=== PATIENT | female | born 1955 | race Caucasian/White ===

== ENCOUNTER 2022-03-13 07:16 | Day surgery (SDC) | payer OTHER ==
[~2022-03-13 07:16] MED LIST: Lactated Ringers 1,000 ML IV SCH
[2022-03-13] MEDS ORDERED: fentaNYL 100 MCG/2 ML SDV ONE ×2 (08:09→09:05)
[2022-03-13] MEDS ORDERED: Propofol 200 MG/20 ML SDV ONE ×3 (08:09→09:41)
== END 2022-03-13 11:30 | disposition home or self-care (01) ==
LOC: VM.SDS 07:16
PROVIDERS: ATTEND Family Medicine
DX: Z12.11 Encounter for screening for malignant neoplasm of colon (principal); D12.2 Benign neoplasm of ascending colon; D12.3 Benign neoplasm of transverse colon; J44.9 Chronic obstructive pulmonary disease, unspecified; K21.9 Gastro-esophageal reflux disease without esophagitis; G47.00 Insomnia, unspecified; E78.00 Pure hypercholesterolemia, unspecified; F17.210 Nicotine dependence, cigarettes, uncomplicated; G62.9 Polyneuropathy, unspecified; E03.8 Other specified hypothyroidism; Z98.890 Other specified postprocedural states; Z79.899 Other long term (current) drug therapy; Z79.890 Hormone replacement therapy
CPT/HCPCS: 00812; J2704; J3010; J7120

== ENCOUNTER 2022-10-09 07:23 | Day surgery (SDC) | payer MEDICARE, BC ==
[2022-10-09] MEDS: Lactated Ringers 1,000 ML IV SCH ×2 (07:39→11:29)
[2022-10-09] MEDS ORDERED: fentaNYL 100 MCG/2 ML SDV ONE (08:22)
[2022-10-09] MEDS ORDERED: Propofol 200 MG/20 ML SDV ONE (08:22)
[2022-10-09] MEDS ORDERED: Ondansetron 8 MG in Sodium Chloride 0.9% 100 ML IV PRN (11:04)
[2022-10-09] MEDS ORDERED: Ondansetron 4 MG/2 ML SDV IV PRN (11:20)
== END 2022-10-09 13:15 | disposition home or self-care (01) ==
LOC: VM.SDS 07:23
PROVIDERS: ATTEND Family Medicine
DX: D13.0 Benign neoplasm of esophagus (principal); K20.90 Esophagitis, unspecified without bleeding; K29.70 Gastritis, unspecified, without bleeding; K21.9 Gastro-esophageal reflux disease without esophagitis; E03.9 Hypothyroidism, unspecified; E78.00 Pure hypercholesterolemia, unspecified; G47.00 Insomnia, unspecified; J44.9 Chronic obstructive pulmonary disease, unspecified; R73.9 Hyperglycemia, unspecified; G62.9 Polyneuropathy, unspecified; E04.1 Nontoxic single thyroid nodule; F17.210 Nicotine dependence, cigarettes, uncomplicated; Z98.890 Other specified postprocedural states; Z79.899 Other long term (current) drug therapy; Z79.890 Hormone replacement therapy; Z68.33 Body mass index [BMI] 33.0-33.9, adult
CPT/HCPCS: 00731; 88305; J1790; J2405; J2704; J3010; J7120

== ENCOUNTER 2022-10-21 16:51 | Observation (INO) | payer MEDICARE, BC ==
[2022-10-21] MEDS ORDERED: Ondansetron 4 MG/2 ML SDV IV PRN (17:09)
[2022-10-21] MEDS ORDERED: Ondansetron 4 MG/2 ML SDV IVPUSH PRN (17:12)
[2022-10-21] MEDS ORDERED: Albuterol HFA 18 Gm Inhaler INH PRN (17:13)
[2022-10-21] MEDS ORDERED: LORazepam 0.5 MG Tab PO PRN (17:13)
[2022-10-21] MEDS ORDERED: cefTRIAXone 1 GM Vial IVPUSH ONE (17:13)
[2022-10-21] MEDS ORDERED: Sodium Chloride 0.9% 1,000 ML IV SCH (17:15)
[2022-10-21] MEDS ORDERED: Potassium Chloride Riders 10 MEQ in Premix Bag 1 BAG IV ONE (17:59)
[2022-10-21] MEDS: Heparin Sodium 5,000 Units/ML Vial SUBCUT SCH (18:45)
[2022-10-21 19:43] LABS: CORONAVIRUS COVID-19 NAA NEGATIVE (NEGATIVE)
[2022-10-21] MEDS: Nicotine 21 MG/24 Hr Patch TRDERM SCH (20:03)
[2022-10-21] MEDS: Acetaminophen 325 MG Tab PO PRN (20:12)
[2022-10-21] MEDS: Omeprazole 20 MG Cap.CR PO SCH (20:13)
[2022-10-21] MEDS: Zolpidem 5 MG Tab PO SCH (20:13)
[2022-10-21] MEDS: NS + KCl 20mEq/L 1,000 ML IV SCH (20:45)
[2022-10-22] MEDS: Heparin Sodium 5,000 Units/ML Vial SUBCUT SCH ×3 (01:14→17:53)
[2022-10-22] MEDS: NS + KCl 20mEq/L 1,000 ML IV SCH ×3 (03:26→16:33)
[2022-10-22] MEDS: Levothyroxine 125 MCG Tab PO SCH (06:33)
[2022-10-22 06:58] LABS: CHLORIDE,CL 105 mmol/L (98-107); SODIUM,NA 141 mmol/L (136-145)
[2022-10-22 07:00] LABS: ESTIMATED GFR 82 mL/min (>=60)
[2022-10-22] MEDS ORDERED: Potassium Chloride 20 MEQ Tab.ER PO ONE (07:38)
[2022-10-22] MEDS ORDERED: Iopamidol 612 MG/ML 100 ML Bottle IVPUSH ONE (07:54)
[2022-10-22] MEDS ORDERED: Non-Formulary Medication 1 Each (Fluticasone/Vilanterol 1 EACH Each) PO SCH (09:00)
[2022-10-22] MEDS ORDERED: Levothyroxine 125 MCG Tab PO SCH (09:00)
[2022-10-22] MEDS: Pregabalin 25 MG Cap PO SCH ×2 (09:33→20:37)
[2022-10-22] MEDS: Potassium Chloride 10 MEQ Tab.ER PO SCH ×2 (09:33→17:52)
[2022-10-22] MEDS: Sertraline 25 MG Tab PO SCH (09:34)
[2022-10-22] MEDS: Omeprazole 20 MG Cap.CR PO SCH ×2 (09:34→20:37)
[2022-10-22] MEDS: Magnesium Oxide 400 MG Tab PO SCH (09:40)
[2022-10-22] MEDS: Nicotine 21 MG/24 Hr Patch TRDERM SCH (09:57)
[2022-10-22] MEDS: Acetaminophen 325 MG Tab PO PRN ×2 (09:57→18:22)
[2022-10-22] MEDS: cefTRIAXone 1 GM Vial IVPUSH SCH (10:00)
[2022-10-22] MEDS: Sucralfate 1 GM Tab PO SCH ×3 (11:22→20:37)
[2022-10-22] MEDS ORDERED: NS + KCl 20mEq/L 1,000 ML IV SCH (19:15)
[2022-10-22] MEDS: Zolpidem 5 MG Tab PO SCH (20:36)
[2022-10-23] MEDS: Heparin Sodium 5,000 Units/ML Vial SUBCUT SCH ×3 (01:08→17:58)
[2022-10-23] MEDS: Levothyroxine 125 MCG Tab PO SCH (06:11)
[2022-10-23] MEDS: Sucralfate 1 GM Tab PO SCH ×4 (06:11→21:13)
[2022-10-23] MEDS: Acetaminophen 325 MG Tab PO PRN ×2 (06:31→13:37)
[2022-10-23 06:50] LABS: ANION GAP 9.6 mmol/L (5-15)
[2022-10-23] MEDS: Magnesium Oxide 400 MG Tab PO SCH ×3 (08:08→21:16)
[2022-10-23] MEDS: Omeprazole 20 MG Cap.CR PO SCH ×2 (08:08→21:13)
[2022-10-23] MEDS: Potassium Chloride 10 MEQ Tab.ER PO SCH (08:08)
[2022-10-23] MEDS: Sertraline 25 MG Tab PO SCH (08:09)
[2022-10-23] MEDS: Pregabalin 25 MG Cap PO SCH ×2 (08:09→21:13)
[2022-10-23] MEDS: cefTRIAXone 1 GM Vial IVPUSH SCH (08:10)
[2022-10-23] MEDS: Nicotine 21 MG/24 Hr Patch TRDERM SCH (08:10)
[2022-10-23] MEDS ORDERED: Potassium Chloride 10 MEQ Tab.ER PO SCH (09:00)
[2022-10-23] MEDS: Zolpidem 5 MG Tab PO SCH (21:12)
[2022-10-24] MEDS: Heparin Sodium 5,000 Units/ML Vial SUBCUT SCH ×2 (01:09→08:35)
[2022-10-24] MEDS: Acetaminophen 325 MG Tab PO PRN ×2 (01:12→10:24)
[2022-10-24] MEDS: Sucralfate 1 GM Tab PO SCH ×2 (06:41→11:22)
[2022-10-24] MEDS: Levothyroxine 125 MCG Tab PO SCH (06:41)
[2022-10-24 07:09] LABS: ANION GAP 11.1 mmol/L (5-15)
[2022-10-24] MEDS: Magnesium Oxide 400 MG Tab PO SCH (08:34)
[2022-10-24] MEDS: Omeprazole 20 MG Cap.CR PO SCH (08:34)
[2022-10-24] MEDS: Pregabalin 25 MG Cap PO SCH (08:34)
[2022-10-24] MEDS: Sertraline 25 MG Tab PO SCH (08:35)
[2022-10-24] MEDS: Nicotine 21 MG/24 Hr Patch TRDERM SCH (08:36)
[2022-10-24] MEDS ORDERED: Potassium Chloride 10 MEQ Tab.ER PO SCH (09:00)
== END 2022-10-24 14:00 | disposition home or self-care (01) ==
LOC: VM.MS 16:52 → INTOOBSV 10-22 08:37 → OBSVTOIN 10-22 08:37
PROVIDERS: ADMIT Family Medicine; ATTEND Family Medicine
DX: R11.2 Nausea with vomiting, unspecified (principal); K21.9 Gastro-esophageal reflux disease without esophagitis; E86.0 Dehydration; R53.1 Weakness; E87.6 Hypokalemia; E83.42 Hypomagnesemia; R63.4 Abnormal weight loss; F32.A Depression, unspecified; E03.9 Hypothyroidism, unspecified; Z85.3 Personal history of malignant neoplasm of breast; J44.9 Chronic obstructive pulmonary disease, unspecified; Z20.822 Contact with and (suspected) exposure to COVID-19
CPT/HCPCS: 0240U; 36415; 74022; 74177; 80048; 80053; 83605; 83735; 85025; 86140; 87040; 93005; 96372; 97161; 97165; 97535; A9270; G0378; G0379; J0696; J1644; J2405; J3480; Q9967

== ENCOUNTER 2025-09-22 06:55 | Emergency (ER) | payer MEDICARE, BC ==
[2025-09-22 07:48] LABS: BASOPHILS ABSOLUTE AUTO 0.0 x10^3/uL (0.0-0.2); BASOPHILS PERCENT AUTO 0.2 % (0.2-1.2); EOSINOPHILS ABSOLUTE AUTO 0.2 x10^3/uL (0.0-0.5); EOSINOPHILS PERCENT AUTO 1.8 % (0.0-4.0); IMMATURE GRAN ABSOLUTE AUTO 0.03 x10^3/uL (0.00-0.07); IMMATURE GRAN PERCENT AUTO 0.20 % (0.00-0.43); LYMPHOCYTES ABSOLUTE AUTO 1.8 x10^3/uL (1.0-4.8); LYMPHOCYTES PERCENT AUTO 15.2 % (25.0-50.0); MONOCYTES ABSOLUTE AUTO 0.7 x10^3/uL (0.0-0.8); MONOCYTES PERCENT AUTO 5.7 % (2.0-11.0); NEUTROPHILS ABSOLUTE AUTO 9.3 x10^3/uL (1.8-7.7); NEUTROPHILS PERCENT AUTO 76.9 % (50.0-80.0); PLATELET COUNT,PLT 248 x10^3/uL (130-400); RED BLOOD CELL COUNT 4.15 x10^6/uL (4.00-5.50); WHITE BLOOD CELL COUNT,WBC 12.1 x10^3/uL (4.0-10.0)
[2025-09-22] MEDS: Ondansetron 4 MG/2 ML SDV IVPUSH ONE (08:05)
[2025-09-22 08:08] LABS: A/G RATIO 1.0; ALANINE AMINOTRANSFERASE,ALT 20.0 U/L (14-59); ASPARTATE AMNIOTRANSFERASE,AST 22.0 U/L (15-37); BILIRUBIN TOTAL 0.3 mg/dL (0.2-1.0); BLOOD UREA NITROGEN,BUN 18.0 mg/dL (7-18); CARBON DIOXIDE,CO2 35.0 mmol/L (21-32); CHLORIDE,CL 101.0 mmol/L (98-107); CREATININE 0.8 mg/dL (0.55-1.02); EST CRCL DRUG DOSING (CG) 55.68 mL/min; ESTIMATED GFR 80.0 mL/min (>=60); GLUCOSE RANDOM 117.0 mg/dL (70-99); POTASSIUM,K 4.4 mmol/L (3.5-5.1); PROTEIN TOTAL,TP 6.6 g/dL (6.4-8.2); SODIUM,NA 140.0 mmol/L (136-145)
[2025-09-22] MEDS: Iopamidol 612 MG/ML 100 ML Bottle IVPUSH ONE (08:54)
== END 2025-09-22 11:37 | disposition short-term general hospital (02) ==
LOC: VM.ED 06:55
DX: M79.81 Nontraumatic hematoma of soft tissue (principal); R10.31 Right lower quadrant pain; R11.0 Nausea; J44.9 Chronic obstructive pulmonary disease, unspecified; E78.00 Pure hypercholesterolemia, unspecified; K21.9 Gastro-esophageal reflux disease without esophagitis; E03.9 Hypothyroidism, unspecified; Z90.89 Acquired absence of other organs; Z79.51 Long term (current) use of inhaled steroids; Z79.899 Other long term (current) drug therapy; Z79.890 Hormone replacement therapy
CPT/HCPCS: 74177; 80053; 83690; 85025; 86140; 96374; 96375; 96376; 99284; 99285-25; J2270; J2405; Q9967